=== PATIENT | male | born 1945 | race Caucasian/White ===

== ENCOUNTER 2021-10-22 07:52 | Inpatient (IN) | payer MEDICARE, OTHER ==
[~2021-10-22] VITALS: Ht 185.4 cm; Wt 88.6 kg
[~2021-10-22 07:52] MED LIST: ALLOPURINOL100 MG PO; ASPIRIN EC81 MG PO; ATENOLOL25 MG PO; GLYBURIDE2.5 MG PO; LANTUS100 UNITS/ SUB-Q; LEVEMIR100 UNIT/1 SUB-Q; LISINOPRIL10 MG PO; METFORMIN HCL1000 MG PO; MULTI VITAMIN1 EACH PO; PRECOSE25 MG PO; SIMVASTATIN20 MG PO; VITAMIN D32000 UNI1 PO
--- NOTE | 2021-10-22 12:25 | NUR ---
PT ARRIVES TO THE FLOOR FROM ED. TRANSFERS TO BED FROM ST[facility]CHER WITH 2 PERSON ASSIST. PT NOTED TO BE EXTREMELY DYAPHORETIC - VS OBTAINED AND STABLE. CBG OBTAINED AND NOTED TO BE 32 - PROTOCOL FOLLOWED AND AMP D50 PUSHED IV. PT EATING LUNCH TRAY - AAO. LUNGS NOTED TO HAVE CRACKLES THROUGHOUT - 2L NC - CPOX APPLIED.
--- NOTE | 2021-10-22 12:49 | NUR ---
FULL AMP OF D50 PUSHED IV FOR CBG OF 32 WHEN ARRIVED TO FLOOR. MD PROVIDED VERBAL ORDER TO HOLD D5W IV FLUIDS AT THIS TIME AND CONTINUE TO MONITOR CBG Q15M TILL OVER 100. PT EATING LUNCH AT THIS TIME, DIAPHORETIC BUT AAO.
--- NOTE | 2021-10-22 13:05 | NUR ---
CBG RETAKEN - NOW 155. PT STATES HE FEELS "MUCH BETTER". WILL CONTINUE TO REASSESS.
[2021-10-22] MEDS ORDERED: SIMVASTATIN40 MG PO (15:16)
--- NOTE | 2021-10-22 15:19 | NUR ---
PT IN ROOM WORKING WITH PT.
--- NOTE | 2021-10-22 15:38 | NUR ---
MED REC COMPLETE
--- NOTE | 2021-10-22 16:04 | NUR ---
RN IN ROOM TO ASSESS PT - PT RESTING IN BED VISITING WITH AT BEDSIDE. LUNG SOUNDS UMCHANGED - CRACKLES THROUGHOUT - STABLE SPO2 ON 2L VA NC. PT DENIES NEED FOR PAIN COVERAGE - CHRONIC PAIN, DOESNT RATE PAIN. CONTINUED TO EDUCATE AND PT ABOUT COVID, ENCOURAGED TO GO HOME AND TEST SELF, STATES SHE HAS A HOME TEST BEING DROPPED OFF.
--- NOTE | 2021-10-22 18:12 | NUR ---
RN IN ROOM TO ADMINISTER SCHEDULED INSULIN. PT ATE 75% OF DINNER - 1 UNIT ADMINISTERED OF SHORT ACTING. PT RESTING IN BED, AAO, SP02 94% ON 2L. PT ENCOURAGED TO USE FLUTTER VALVE. NON PRODUCTIVE COUGH NOTED. PT DENIES FURTHER NEEDS, CALL LIGHT IN REACH.
--- NOTE | 2021-10-22 19:34 | NUR ---
RECEIVED REPORT FROM DAY SHIFT. PT IS AWAKE AND ALERT. CALL LIGHT IN REACH. NO NEEDS AT THIS TIME.
--- NOTE | 2021-10-22 21:56 | NUR ---
DR ESTRELLA NOTIFIED OF PTS IRREGULAR BRADYCARDIC PULSE. PULSE LOW 36 BPM SEEN ON MONITOR. MD TO COME BY TO SEE PT.
--- NOTE | 2021-10-22 23:47 | NUR ---
PT HAS BEEN SLEEPING . CALL LIGHT IN REACH. CPOX ON HEART RATE WNL. CALLL LIGHT IN REACH.
--- NOTE | 2021-10-23 00:12 | NUR ---
PT WAS ATTEMPTING TO GET OUT OF BED ON HIS OWN TO GO TO THE BATHROOM. HE WAS WEAK AND UNABLE TO GET HIS FEET UNDER HIM. HE WAS ALEADY INCONTINENT OR URINE AND DID NOT REALIZE IT. PT WAS ASSISTED BACK TO BED BY 2 STAFF. UNDERWEAR AND CHUX CHANGED. PT WAS REPOSITIONED . RT NOTIFIED TO TRY A BREATHING TREATMENT TO IMPROVE LUNG COMPLIANCE. PT HAS CRACKLES THROUGHOUT HIS LUNG MARES. BED ALARM IS LAUNDRY BAG PUNCH OPERATOR LIGHT IN REACH. PT REMINDED TO CALL FOR ASSIST.
--- NOTE | 2021-10-23 01:45 | NUR ---
PT APPEARS TO BE SLEEPING. CALL LIGHT IN REACH. HIS HEART RATE HAS BEEN GREATER THAN 40 HE HAS NOT SET OFF IS CPOX ALARM. SATS ARE 94 % ON 2 L PER NC.
--- NOTE | 2021-10-23 06:43 | NUR ---
PT WAS NOT ABLE TO USE CALL LIGHT AT BEGINNING OF THIS SHIFT TO CALL FOR ASSIST. HE HAD 1 EPISODE OF URINARY INCONTINENCE. HE WAS ABLE TO USE HIS CALL LIGHT THIS AM. WAS ABLE TO USE HIS URINAL. HIS HEART RATE WAS BRADYCARDIC AND IRREGULAR AT BEGINNING OF SHIFT WITH HEART RATE LOW 36 SEEN. THIS IMPROVED TO HEART RATE OF 48 AND HIGHER.PT HAD A CRITICAL VALUE THIS AM . WBC = 33.4.DR HAQUE WAS NOTIFIED. NO NEW ORDERS AT THIS TIME.
--- NOTE | 2021-10-23 07:15 | NUR ---
report receieved from night rn - pt resting in bed on side, cpox in place - hr variable on monitor. call light in reach.
--- NOTE | 2021-10-23 08:30 | NUR ---
RN IN ROOM TO ASSESS PT AND ADMINISTER SCHEDULED MEDS - PT RESTING IN BED UPON ENTRY, AWAKE AND ORIENTED HOWEVER HE DOES NOT HAVE HIS HEARING AIDES AND IS UNABLE TO HEAR WITHOUT THEM. LUNG SOUNDS NOT IMPROVED FROM YESTERDAY - CRACKLES THROUGHOUT. SP02 VARIABLE ON CPOX - 2L NC. HR ALSO VARIABLE ON MONITOR, REGULAR RYTHEM ON PALPATION. PT WEAK IN APPERANCE, CLAMY AND CHILLS NOTED. CBG STABLE BEFORE BREAKFAST, 75% MEAL CONSUMED. IV SITE FLUSHED WITHOUT DIFFICUTLY. UPDATE PROVIDED TO MD - NEW ORDERS RECEIVED AND VERIFIED. WILL CONTINUE TO MONITOR PTS CONDITION.
--- NOTE | 2021-10-23 09:40 | NUR ---
RN ROUNDING ON PT - RESTING IN BED, CPOX VISUALIZED - SP02 AND HR STABLE. CALL LIGHT IN REACH.
--- NOTE | 2021-10-23 11:14 | NUR ---
RN IN ROOM TO ROUND ON PT - PT RESTING IN BED VISITING WITH AT BEDSIDE. PT APPEARS CLAMY UPON ASSESSMENT, TEMP 99.6 - TRENDING UPWARD. PT MENTAL STATUS DIFFICULT TO ASSESS - PT JOKING WHEN ANSWERING AND UNABLE TO GET A STRAIGHT ANSWER. SAYS THAT HE WAS "OUT OF IT AT HOME" SINCE SICK, AND BASELINE IS CLEAR IN THE MORNING AND WORSE AT NIGHT. URINE OUTPUT CONTINUES TO BE POOR - USING URINAL AND PRODUCING 50ML AT A TIME. MD AWARE OF ENTIRE ASSESSMENT - WILL CONTINUE TO MONITOR AND WATCH FOR NEW ORDERS.
--- NOTE | 2021-10-23 11:39 | NUR ---
PT UNDER PRECAUTIONS, DID NOT ENTER PT'S RM BUT ABLE TO CONNECT WITH HIS AILIN. THEIR BOATBUILDER SUPERVISOR HAD VISITED WHICH SEEMED TO VERY POSITIVE. GAVE G.POST, ENCOURAGEMENT. WILL FOLLOW
--- NOTE | 2021-10-23 12:50 | NUR ---
RN IN ROOM TO ASSIT PT TO BATHROOM - REQUESTS TO USE TOILET TO HAVE BM. AMBULATED WITH FWW, WEAK AND UNSTEADY, 2 PERSON ASSIST. NO BM PRODUCED, URINE VOID OF 200. PT CONTINUES TO HAVE 02 SAT IN LOW 90'S WHILE AWAKE. WET NON PRODUCTIVE COUGH, ENCOURAGE DEEP BREATHING/COUGH. PT NOTED TO BE DYAPHORETIC, TEMP NOW 97.9 DOWN FROM 99.6. CBG WAS 111 BEFORE LUNCH, ATE 90%. LINENS CHANGED. IV AND ORAL ABX STARTED. AT BEDSIDE.
--- NOTE | 2021-10-23 15:30 | NUR ---
RN IN ROOM TO ASSESS PT - RT ALSO IN ROOM. PT AWAKE RESTING IN BED UPON ENTRY. PT SP02 95% AFTER COUGHING USING FLUTTER VALVE. PT DENIES PAIN OR COMPLAINTS. CALL LIGHT IN REACH
--- NOTE | 2021-10-23 17:09 | NUR ---
RN IN ROOM TO ADMINISTER SCHEDULED MEDICATIONS - PT RESTING IN BED AWAKE UPON ENTRY. CBG 203 = INSULIN PROVIDED FOR COVERAGE. PT DENIES NEEDS. RESPIRATORY ASSESSMENT UNCHANGED.
--- NOTE | 2021-10-23 19:41 | NUR ---
REPORT RECEIVED . PT IS CURRENTLY SLEEPING. BED ALARM IS ON. PT IS MONITORED ON CPOX AT NURSES STATION. HEART RATE LOW 30. MD IS AWARE OF RECURRING BRADYCARDIA. NO NEW INTERVENTIONS. CALL LIGHT IN REACH.
--- NOTE | 2021-10-23 21:10 | NUR ---
in to get vitals, pt is due to void, denies need to void, accu check is complete, no further needs at this time, rn in to pass meds shortly, urinal at bedside for pts use
--- NOTE | 2021-10-24 00:04 | NUR ---
PT APPEARS TO BE SLEEPING COMFORTABLY. MONITOR SHOWS HEART RATE LOW 30 BPM. SATS ARE 94 TO 95 % ON 2 L PER NC. NO VOID , BRIEF IS DRY. CALL LIGHT IN REACH. URINAL AT THE BEDSIDE. DID NOT AWAKEN PT.
--- NOTE | 2021-10-24 00:33 | NUR ---
PT VOIDED IN URINAL. 100 MLS DARK URINE. BED ALARM IS ON PT BACK TO SLEEP. CALL LIGHT IN REACH. NO OTHER NEEDS.
--- NOTE | 2021-10-24 04:00 | NUR ---
PT HEART RATE WAS NOT BEING READ BY THE TELE CPOX UNIT. STAFF WENT IN TO CHECK ON PT WHO WAS LETHARGIC, INCONTINENT OF URINE. PTS HEART RATE BY AUSCULTATION AND RADIAL PALPATION WAS 28 TO 30. 4 ATTEMPTS WERE MADE TO GET A BP WHICH WAS WNL ON THE LAST TRY. PT WAS ENCOURAGED TO SIP WATER.HE ASKED TO BE LEFT ALONE. HE IS NOW ON BEDSIDE CPOX WITH HEART RATE 28 TO 43 BPM. PT WAS CLEANED. NEW ATTENDS APPLIED. BOOSTED IN BED. BED ALARM IS CELL ATTENDANT HELPER LIGHT IN REACH.
--- NOTE | 2021-10-24 05:16 | NUR ---
PT HAS BEEN INCONTINENT OF URINE. DID NOT AWAKEN TO USE HIS URINAL. PT IS ON A CPOX AND SATS ARE 94 TO 97 % ON 2 L O2 VIA NC. PTS HEART RATE IS VERY LOW AT 28 TO 43. BP IS 120 SYSTOLIC. PT HAS BEEN LETHARGIC. HAS DECREASED ORAL INTAKE.
--- NOTE | 2021-10-24 06:37 | NUR ---
PRIMARY RN DRE TALKED TO DR HAQUE ABOUT CRITICAL VALUE OF WBC 37.2 AND PTS CONTINUES BRADYCHARDIC 28BPM. TELE ORDERED
--- NOTE | 2021-10-24 07:24 | NUR ---
REPORT RECEIVED FROM NIGHT RN - PT ASLEEP IN BED WITH HOB SLIGHTLY ELEVATED. PT HR 24 ON CPOX IN ROOM, RR EVEN AN UNLABORED - SP02 93%. PT PALE AND DIAPHORETIC. 2L NC IN PLACE.
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
--- NOTE | 2021-10-24 10:31 | NUR ---
RN ROUNDING ON PT - AT BEDSIDE TALKING WITH PT. PT EATING BANANA IN BED, HR 58 ON TELE #9. RR EVEN AND UNLABORED, 2L NC IN PLACE. FOOD COOKING MACHINE OPERATOR UPDATES PRIMARY RN ON PLAN OF CARE TO TRANSFER PT TO HIGHER LEVEL OF CARE FACILITY R/T HEART BLOCKS NOTED ON EKG. AND PT IN AGGREANCE WITH PLAN PER MD.
--- NOTE | 2021-10-24 11:04 | NUR ---
PT AGREES TO TRANSFER. BEGAN CALLING FOR A BED. 1015- [facility], NO BED AVAILABLE 1020- [facility]- CALL BACK AT 1050, NO BED AVAILABLE SPOKE WITH FAMILY ABOUT TRANSFER, THEY REQUESTED [facility]. 1050- CALL TO [facility], NO BEDS 1052- CALL TO [facility]- NO BEDS 1053- CALL TO [facility]- NO BEDS 1057- CALL TO [facility]- WAITING CALL BACK. 1107- CALL TO [facility]- WAITING CALL BACK 1110- [facility] CALLED BACK WITH NO BEDS[facility] HAQUE
--- NOTE | 2021-10-24 12:35 | NUR ---
RN IN ROOM TO ADMINISTER SCHEDULED INSULIN - 3 UNITS ADMINISTERED FOR CBG OF 211. PT IN BED WITH HOB ELEVATED EATING LUNCH. NON PRODUCTIVE COUGH NOTED, 2L NC IN PLACE, SPO2 STABLE IN 90S ON THIS. HR CURRENTLY IN 50'S ON TELE. AT BEDSIDE, EDUCATED TO CALL TRANSFER FACILITY ABOUT VISITOR RESTRICTIONS BEFORE TRAVELING.
--- NOTE | 2021-10-24 18:33 | NUR ---
REPORT CALLED TO JE CACERES RN A . NORIFIED OF PT DEPARTURE.
--- NOTE | 2021-10-27 19:04 | EKG ---
[facility] [address] [facility] [place] [address] Signed Sinus bradycardia with 2nd degree AV block (Mobitz I) with 2:1 AV conduction with occasional premature ventricular complexes Abnormal ECG No previous ECGs available Confirmed by LATESHA PARKER MD ([id number] on 10/27/2021 7:04:19 PM Electronically Signed By: LATESHA PARKER MD 10/27/21 1904 PATIENT NAME: SAMYOBANY LACIE Electrocardiogram DATE OF : 43 PHYSICIAN: LATESHA PARKER MD REPORT #: [id number] REPORT IS CONFIDENTIAL AND NOT TO BE RELEASED WITHOUT AUTHORIZATION
== END 2021-10-24 18:08 | disposition short-term general hospital (02) | DRG 177 ==
LOC: ED 07:52 → MS 11:05
PROVIDERS: ADMIT Internal Medicine; ATTEND Internal Medicine
PROC: 8E0ZXY6 Isolation (ICD-10-PCS; principal; 2021-10-22)
PROC: 3E0333Z Introduction of Anti-inflammatory into Peripheral Vein, Percutaneous Approach (ICD-10-PCS; 2021-10-22)
DX: U07.1 COVID-19 (principal); J96.01 Acute respiratory failure with hypoxia; J12.82 Pneumonia due to coronavirus disease 2019; J15.9 Unspecified bacterial pneumonia; R00.1 Bradycardia, unspecified; R29.6 Repeated falls; I44.1 Atrioventricular block, second degree; E11.9 Type 2 diabetes mellitus without complications; I10 Essential (primary) hypertension; Z88.6 Allergy status to analgesic agent; Z79.4 Long term (current) use of insulin; Z79.82 Long term (current) use of aspirin; Z79.899 Other long term (current) drug therapy
CPT/HCPCS: 36415; 71045; 80048; 80053; 81001; 83880; 85007; 85025; 85379; 87088; 87502; 93005; 93010; 93306; 94640; 94667; 94668; 94760; 94762; 96374; 97162; 99285-25; A9270; C9803; J0696; J1100; J1650; J1815; J7040; J8540; U0003

== ENCOUNTER 2023-11-14 17:38 | Emergency (ER) | payer MEDICARE, OTHER ==
[~2023-11-14] VITALS: Ht 185.4 cm; Wt 75.2 kg
[~2023-11-14 17:38] MED LIST changes: +SIMVASTATIN40 MG PO
[2023-11-14] MEDS ORDERED: PIOGLITAZONE HC15 MG PO (17:56)
[2023-11-14] MEDS ORDERED: ALLOPURINOL300 MG PO (17:56)
[2023-11-14] MEDS ORDERED: ELIQUIS5 MG PO (17:56)
[2023-11-14 18:14] LABS: HEMOGLOBIN 10.4 g/dL (12.0-18.0); MCHC 29.7 g/dl (30-36); PLATELET COUNT 172 K/uL (140-440)
[2023-11-14] MEDS ORDERED: ACETAMINOPHEN 500 MG TAB PO ONE (18:15)
[2023-11-14] MEDS ORDERED: SODIUM CHLORIDE 0.9% 1,000 ML IV ONE (18:15)
[2023-11-14 18:16] LABS: HEMATOCRIT 34.9 % (35.0-50.0); MCH 29.4 (27-36); MCV 99.1 fl (81-99); RBC 3.53 M/ul (4.3-5.7); RDW 20.9 (10.5-15.0)
[2023-11-14 18:20] LABS: ALBUMIN 3.5 g/dL (3.4-5.0); ALBUMIN/GLOBULIN RATIO 1.17 (1.1-2.4); ANION GAP 17.5 (7-21); BILIRUBIN, TOTAL 0.6 ng/dL (0.2-1.0); BUN/CREATININE RATIO 30.18 (6.0-28.6); CALCIUM 9.2 mg/dL (8.5-10.1); CREATININE, SERUM 1.59 mg/dL (0.70-1.30); POTASSIUM 5.5 mmol/L (3.5-5.1); PROTEIN, TOTAL 6.5 g/dL (6.4-8.2)
[2023-11-14 18:56] LABS: EOSINOPHILS, MANUAL DIFF 1; LYMPHOCYTES, MANUAL DIFF 94; NEUTROPHILS, MANUAL DIFF 5
[2023-11-14 19:39] VITALS: BP 91/76
== END 2023-11-14 19:45 | disposition home or self-care (01) ==
LOC: ED 17:38
PROVIDERS: Emergency Medicine
DX: E86.0 Dehydration (principal); C85.90 Non-Hodgkin lymphoma, unspecified, unspecified site; I10 Essential (primary) hypertension; E11.9 Type 2 diabetes mellitus without complications; Z95.0 Presence of cardiac pacemaker; Z88.5 Allergy status to narcotic agent; Z79.01 Long term (current) use of anticoagulants; Z79.84 Long term (current) use of oral hypoglycemic drugs; Z79.899 Other long term (current) drug therapy; Z79.4 Long term (current) use of insulin
CPT/HCPCS: 71045; 80053; 85025; A9270; J7030